=== PATIENT | male | born 1995 | race African-American/Black ===

== ENCOUNTER 2020-09-05 18:13 | Emergency (ER) | payer MEDICAID ==
[~2020-09-05] VITALS: Ht 180.3 cm; Wt 67.0 kg
[2020-09-05 18:33] VITALS: BP 135/77
== END 2020-09-05 23:30 | disposition left against medical advice (07) ==
LOC: ER 18:13
DX: R21 Rash and other nonspecific skin eruption (principal); M54.5 Low back pain; Z53.21 Procedure and treatment not carried out due to patient leaving prior to being seen by health care provider

== ENCOUNTER 2020-10-09 22:12 | Emergency (ER) | payer MEDICAID ==
[~2020-10-09] VITALS: Ht 175.3 cm; Wt 61.0 kg
[2020-10-09 22:26] VITALS: BP 132/78
[2020-10-09] MEDS ORDERED: KETOROLAC 60MG/2ML VIAL IM ONE (23:30)
== END 2020-10-10 05:31 | disposition home or self-care (01) ==
LOC: ER 22:12 → CANBEDREQ 10-10 05:08 → ER 10-10 05:31
DX: M54.9 Dorsalgia, unspecified (principal); G89.29 Other chronic pain; F12.10 Cannabis abuse, uncomplicated; Z98.890 Other specified postprocedural states
CPT/HCPCS: 99283

== ENCOUNTER 2020-11-07 23:50 | Emergency (ER) | payer MEDICAID ==
[~2020-11-07] VITALS: Ht 175.3 cm; Wt 73.0 kg
[2020-11-08] MEDS ORDERED: ACETAMINOPHEN 325MG TABLET PO ONE (04:30)
[2020-11-08] MEDS ORDERED: BACITRACIN 15GM TUBE TOP ONE (05:30)
[2020-11-08] MEDS ORDERED: IBUP-2029 MT (05:37)
[2020-11-08] MEDS ORDERED: DOXY100C2 MT (05:37)
[2020-11-08 05:44] VITALS: BP 142/80
[2020-11-08] MEDS ORDERED: HYDROCODONE/ACETAMINOPHEN 5/325MG TABLET PO ONE (05:45)
== END 2020-11-08 06:45 | disposition home or self-care (01) ==
LOC: ER 23:50
DX: M54.5 Low back pain (principal); Z48.02 Encounter for removal of sutures; Z88.0 Allergy status to penicillin; F12.10 Cannabis abuse, uncomplicated; Z98.890 Other specified postprocedural states
CPT/HCPCS: 72100; 99284; Z7610

== ENCOUNTER 2020-11-14 18:00 | Emergency (ER) | payer MEDICAID ==
[~2020-11-14] VITALS: Ht 172.7 cm; Wt 89.0 kg
[~2020-11-14 18:00] MED LIST: DOXY100C2 MT; IBUP-2029 MT
[2020-11-14 18:07] VITALS: BP 130/55
[2020-11-14] MEDS ORDERED: ACETAMINOPHEN 325MG TABLET PO ONE (18:30)
== END 2020-11-14 19:16 | disposition home or self-care (01) ==
LOC: EDBD → ER 18:00
DX: R05 Cough (principal); F12.10 Cannabis abuse, uncomplicated; Z88.0 Allergy status to penicillin
CPT/HCPCS: 71045; 99283